=== PATIENT | female | born 1935 | race African-American/Black ===

== ENCOUNTER 2016-12-04 11:40 | Inpatient (IN) | payer OTHER, MEDICAID ==
[~2016-12-04] VITALS: Ht 167.6 cm; Wt 39.5 kg
[~2016-12-04 11:40] MED LIST: DOCU-138 PO; DONE5TAB26 PO; MELO-58 PO; PHEN100C4 PO; POTA20LI PO; PROT40 PO; SPIR25TA PO
[2016-12-04] MEDS ORDERED: TRAM50TA3 PO (13:09)
[2016-12-04] MEDS ORDERED: PROM6.25 PO (13:09)
[2016-12-04] MEDS ORDERED: SODIUM CHLORIDE 0.9% 1,000 ML IV ONE (16:45)
[2016-12-04] MEDS ORDERED: CEFTRIAXONE 1 G PREMIX 50 ML IV ONE (16:45)
[2016-12-04 17:01] LABS: HEMATOCRIT. 29.1 % (36.0-48.0); HEMOGLOBIN. 9.4 g/dL (12.0-16.0); MEAN CORPUSCULAR HEMOGLOBIN 26.5 pg (28.0-32.0); MEAN CORPUSCULAR HGB CONC 32.3 g/dL (31.0-37.0); MEAN PLATELET VOLUME 7.9 fl (7.4-10.4); PLATELET 321 x1000/uL (130-400); RED BLOOD CELL COUNT 3.56 mill/uL (4.2-5.4); RED CELL DISTRIBUTION WIDTH 15.8 % (11.6-14.6); WHITE BLOOD COUNT 12.3 x1000/uL (4.5-11.0)
[2016-12-04 17:07] LABS: CHLORIDE 101 mEq/L (98-107); DIFFERENTIAL COMMENT 1; INDEX HEMOLYSI 3 (1-3); INDEX ICTERIC 1 (1-4); INDEX LIPEMIC 1 (1-3)
[2016-12-04 17:08] LABS: INR 1.1
[2016-12-04 17:12] LABS: ANION GAP 12; CALCIUM 8.6 mg/dL (8.5-10.1); CARBON DIOXIDE 32 mEq/L (21-32); UREA NITROGEN BLOOD 8 mg/dL (7-21); eGFR > 60 mL/min (>60)
[2016-12-04 17:50] LABS: PLATELET ESTIMATE NORMAL
[2016-12-04 17:51] LABS: ANISOCYTOSIS 1+; HYPOCHROMASIA 1+
[2016-12-04] MEDS: LORAZEPAM 2MG/ML CPJ IV PRN ×2 (17:51→20:13)
[2016-12-04 21:45] VITALS: BP 126/73
[2016-12-04 22:00] VITALS: BP 126/77
[2016-12-04] MEDS ORDERED: SODIUM CHLORIDE 0.9% 1,000 ML IV SCH (23:45)
[2016-12-05] VITALS: BP 132/78
[2016-12-05] MEDS: SODIUM CHLORIDE 0.9% 1,000 ML IV SCH ×2 (01:49→13:25)
[2016-12-05 04:00] VITALS: BP 128/80
[2016-12-05] MEDS: CEFTRIAXONE 1 G PREMIX 50 ML IV SCH (04:08)
[2016-12-05 06:27] LABS: BASOPHILS % 0.3 % (0.0-2.0); EOSINOPHILS % 0.2 % (0.0-5.0); HEMATOCRIT. 27.5 % (36.0-48.0); HEMOGLOBIN. 9.2 g/dL (12.0-16.0); MEAN CORPUSCULAR HEMOGLOBIN 27.6 pg (28.0-32.0); MEAN CORPUSCULAR HGB CONC 33.3 g/dL (31.0-37.0); MEAN CORPUSCULAR VOLUME 82.7 fL (81.0-99.0); MEAN PLATELET VOLUME 7.2 fl (7.4-10.4); MONOCYTES % 6.8 % (2.0-8.0); NEUTROPHILS % 70.7 % (40.0-76.0); PLATELET 351 x1000/uL (130-400); RED BLOOD CELL COUNT 3.32 mill/uL (4.2-5.4); RED CELL DISTRIBUTION WIDTH 15.8 % (11.6-14.6); WHITE BLOOD COUNT 8.1 x1000/uL (4.5-11.0)
[2016-12-05 06:44] LABS: ANION GAP 14; CARBON DIOXIDE 28 mEq/L (21-32); CHLORIDE 100 mEq/L (98-107); INDEX HEMOLYSI 1 (1-3); INDEX ICTERIC 1 (1-4); INDEX LIPEMIC 1 (1-3); UREA NITROGEN BLOOD 5 mg/dL (7-21); eGFR > 60 mL/min (>60)
[2016-12-05 08:00] VITALS: BP 120/70
[2016-12-05] MEDS: ENOXAPARIN 30MG/0.3ML SYR SUBCUT SCH (09:12)
[2016-12-05] MEDS: HYDROCODONE/ACETAMINOPHEN 5/325MG TABLET PO PRN ×2 (09:28→20:48)
[2016-12-05 12:00] VITALS: BP 97/71
[2016-12-05] MEDS ORDERED: LIDOCAINE HCL 1% 20ML VIAL (Pyxis) INJ INFIL NR (12:15)
[2016-12-05] MEDS ORDERED: GABA-529 PO (12:19)
[2016-12-05 16:00] VITALS: BP 117/68
[2016-12-05 20:00] VITALS: BP 154/91
[2016-12-06] VITALS: BP 132/76
[2016-12-06] MEDS: LORAZEPAM 2MG/ML CPJ IV PRN ×2 (00:18→15:04)
[2016-12-06 04:00] VITALS: BP 129/92
[2016-12-06] MEDS: SODIUM CHLORIDE 0.9% 1,000 ML IV SCH ×2 (04:34→17:46)
[2016-12-06] MEDS: CEFTRIAXONE 1 G PREMIX 50 ML IV SCH (04:35)
[2016-12-06 08:00] VITALS: BP 123/81
[2016-12-06] MEDS: ENOXAPARIN 30MG/0.3ML SYR SUBCUT SCH (09:11)
[2016-12-06] MEDS ORDERED: VANCOMYCIN 1 G PREMIX 200 ML IV SCH (11:00)
[2016-12-06] MEDS: HYDROCODONE/ACETAMINOPHEN 5/325MG TABLET PO PRN ×2 (11:55→17:46)
[2016-12-06 12:00] VITALS: BP 140/75
[2016-12-06 16:00] VITALS: BP 103/78
[2016-12-06 20:00] VITALS: BP 142/76
[2016-12-07] VITALS: BP 120/82
[2016-12-07 04:00] VITALS: BP 150/98
[2016-12-07] MEDS: CEFTRIAXONE 1 G PREMIX 50 ML IV SCH (05:17)
[2016-12-07] MEDS: HYDROCODONE/ACETAMINOPHEN 5/325MG TABLET PO PRN ×3 (05:27→23:24)
[2016-12-07] MEDS: SODIUM CHLORIDE 0.9% 1,000 ML IV SCH ×2 (05:28→22:50)
[2016-12-07 06:56] LABS: BASOPHILS % 0.3 % (0.0-2.0); EOSINOPHILS % 0.1 % (0.0-5.0); HEMATOCRIT. 28.8 % (36.0-48.0); HEMOGLOBIN. 9.6 g/dL (12.0-16.0); LYMPHOCYTES % 17.9 % (20.0-50.0); MEAN CORPUSCULAR HEMOGLOBIN 26.9 pg (28.0-32.0); MEAN CORPUSCULAR HGB CONC 33.2 g/dL (31.0-37.0); MEAN PLATELET VOLUME 7.3 fl (7.4-10.4); MONOCYTES % 8.1 % (2.0-8.0); NEUTROPHILS % 73.6 % (40.0-76.0); PLATELET 413 x1000/uL (130-400); RED BLOOD CELL COUNT 3.56 mill/uL (4.2-5.4); RED CELL DISTRIBUTION WIDTH 15.7 % (11.6-14.6); WHITE BLOOD COUNT 7.7 x1000/uL (4.5-11.0)
[2016-12-07 07:50] LABS: CHLORIDE 101 mEq/L (98-107); INDEX HEMOLYSI 1 (1-3); INDEX ICTERIC 1 (1-4); INDEX LIPEMIC 1 (1-3)
[2016-12-07 08:00] VITALS: BP 134/80
[2016-12-07 08:04] LABS: ANION GAP 15; CARBON DIOXIDE 27 mEq/L (21-32); eGFR > 60 mL/min (>60)
[2016-12-07 08:26] LABS: UREA NITROGEN BLOOD 4 mg/dL (7-21)
[2016-12-07] MEDS: OMEPRAZOLE 20MG CAPSULE EXTENDED RELEASE PO SCH (10:20)
[2016-12-07] MEDS: ENOXAPARIN 30MG/0.3ML SYR SUBCUT SCH (10:20)
[2016-12-07] MEDS ORDERED: VANCOMYCIN 750 MG PREMIX 150 ML IV SCH (11:00)
[2016-12-07 12:00] VITALS: BP 146/89
[2016-12-07] MEDS ORDERED: POTASSIUM CHLORIDE INJ 40 MEQ in DEXT 5% WATER 500 ML IV NR (12:30)
[2016-12-07 16:00] VITALS: BP 131/88
[2016-12-07 20:00] VITALS: BP 113/79
[2016-12-08] VITALS: BP 108/66
[2016-12-08] MEDS: CEFTRIAXONE 1 G PREMIX 50 ML IV SCH (03:55)
[2016-12-08 04:00] VITALS: BP 129/86
[2016-12-08] MEDS: OMEPRAZOLE 20MG CAPSULE EXTENDED RELEASE PO SCH ×2 (07:20→08:40)
[2016-12-08 08:00] VITALS: BP 111/60
[2016-12-08] MEDS: VANCOMYCIN 750 MG PREMIX 150 ML IV SCH (08:36)
[2016-12-08] MEDS: ENOXAPARIN 30MG/0.3ML SYR SUBCUT SCH (08:38)
[2016-12-08] MEDS: SODIUM CHLORIDE 0.9% 1,000 ML IV SCH (08:47)
[2016-12-08 09:30] LABS: BASOPHILS % 0.9 % (0.0-2.0); EOSINOPHILS % 0.1 % (0.0-5.0); HEMATOCRIT. 26.2 % (36.0-48.0); HEMOGLOBIN. 8.6 g/dL (12.0-16.0); LYMPHOCYTES % 15.9 % (20.0-50.0); MEAN CORPUSCULAR HEMOGLOBIN 26.5 pg (28.0-32.0); MEAN CORPUSCULAR HGB CONC 32.9 g/dL (31.0-37.0); MEAN CORPUSCULAR VOLUME 80.5 fL (81.0-99.0); MEAN PLATELET VOLUME 7.1 fl (7.4-10.4); MONOCYTES % 7.3 % (2.0-8.0); NEUTROPHILS % 75.8 % (40.0-76.0); PLATELET 400 x1000/uL (130-400); RED BLOOD CELL COUNT 3.25 mill/uL (4.2-5.4); RED CELL DISTRIBUTION WIDTH 15.8 % (11.6-14.6); WHITE BLOOD COUNT 7.5 x1000/uL (4.5-11.0)
[2016-12-08 09:50] LABS: ANION GAP 11; CALCIUM 7.5 mg/dL (8.5-10.1); CARBON DIOXIDE 27 mEq/L (21-32); CHLORIDE 104 mEq/L (98-107); INDEX HEMOLYSI 1 (1-3); INDEX ICTERIC 1 (1-4); INDEX LIPEMIC 1 (1-3); UREA NITROGEN BLOOD 5 mg/dL (7-21); eGFR > 60 mL/min (>60)
[2016-12-08] MEDS ORDERED: POTASSIUM CHLORIDE 20MEQ TABLET SR PO NR (10:10)
[2016-12-08 12:00] VITALS: BP 145/85
[2016-12-08] MEDS ORDERED: POTASSIUM CHLORIDE INJ 40 MEQ in DEXT 5% WATER 250 ML IV NR (12:00)
[2016-12-08 16:00] VITALS: BP 152/104
[2016-12-08] MEDS: HYDROCODONE/ACETAMINOPHEN 5/325MG TABLET PO PRN (16:57)
[2016-12-08 20:00] VITALS: BP 105/63
[2016-12-08] MEDS: LORAZEPAM 2MG/ML CPJ IV PRN (21:42)
[2016-12-08] MEDS ORDERED: CALCIUM CHLORIDE IV NR (23:00)
[2016-12-08] MEDS ORDERED: WATER IV NR (23:00)
[2016-12-08] MEDS ORDERED: DEXT 5% IV NR (23:00)
[2016-12-09] VITALS: BP 105/71
[2016-12-09] MEDS: VANCOMYCIN 750 MG PREMIX 150 ML IV SCH ×2 (02:42→20:56)
[2016-12-09] MEDS: CEFTRIAXONE 1 G PREMIX 50 ML IV SCH (03:59)
[2016-12-09 04:00] VITALS: BP 118/67
[2016-12-09] MEDS: OMEPRAZOLE 20MG CAPSULE EXTENDED RELEASE PO SCH (07:00)
[2016-12-09 08:00] VITALS: BP 128/77
[2016-12-09] MEDS: ENOXAPARIN 30MG/0.3ML SYR SUBCUT SCH (10:14)
[2016-12-09 12:00] VITALS: BP 137/82
[2016-12-09 15:09] LABS: BASOPHILS % 0.6 % (0.0-2.0); EOSINOPHILS % 0.1 % (0.0-5.0); HEMATOCRIT. 28.1 % (36.0-48.0); HEMOGLOBIN. 9.3 g/dL (12.0-16.0); LYMPHOCYTES % 22.7 % (20.0-50.0); MEAN CORPUSCULAR HEMOGLOBIN 26.9 pg (28.0-32.0); MEAN CORPUSCULAR HGB CONC 33.1 g/dL (31.0-37.0); MEAN CORPUSCULAR VOLUME 81.3 fL (81.0-99.0); MEAN PLATELET VOLUME 7.2 fl (7.4-10.4); MONOCYTES % 7.9 % (2.0-8.0); NEUTROPHILS % 68.7 % (40.0-76.0); PLATELET 391 x1000/uL (130-400); RED BLOOD CELL COUNT 3.45 mill/uL (4.2-5.4); RED CELL DISTRIBUTION WIDTH 15.8 % (11.6-14.6); WHITE BLOOD COUNT 6.7 x1000/uL (4.5-11.0)
[2016-12-09 15:19] LABS: ANION GAP 10; CALCIUM 8.8 mg/dL (8.5-10.1); CARBON DIOXIDE 29 mEq/L (21-32); CHLORIDE 102 mEq/L (98-107); INDEX HEMOLYSI 1 (1-3); INDEX ICTERIC 1 (1-4); INDEX LIPEMIC 1 (1-3)
[2016-12-09 15:21] LABS: UREA NITROGEN BLOOD 4 mg/dL (7-21)
[2016-12-09 15:22] LABS: eGFR > 60 mL/min (>60)
[2016-12-09 16:00] VITALS: BP 116/81
[2016-12-09 20:00] VITALS: BP 126/64
[2016-12-09] MEDS: HYDROCODONE/ACETAMINOPHEN 5/325MG TABLET PO PRN (20:56)
[2016-12-09] MEDS ORDERED: POTASSIUM CHLORIDE INJ 40 MEQ in DEXT 5% WATER 250 ML IV NR (23:00)
[2016-12-10] VITALS: BP 121/91
[2016-12-10 04:00] VITALS: BP 139/92
[2016-12-10] MEDS: CEFTRIAXONE 1 G PREMIX 50 ML IV SCH (06:18)
[2016-12-10] MEDS ORDERED: FAMOTIDINE 20MG TABLET PO SCH (07:20)
[2016-12-10 08:00] VITALS: BP 131/81
[2016-12-10 08:09] LABS: ANION GAP 12; CARBON DIOXIDE 27 mEq/L (21-32); CHLORIDE 102 mEq/L (98-107); INDEX HEMOLYSI 1 (1-3); INDEX ICTERIC 1 (1-4); INDEX LIPEMIC 1 (1-3); UREA NITROGEN BLOOD 5 mg/dL (7-21); eGFR > 60 mL/min (>60)
[2016-12-10] MEDS ORDERED: POTASSIUM CHLORIDE 20MEQ TABLET SR PO NR (08:30)
[2016-12-10] MEDS: VANCOMYCIN 750 MG PREMIX 150 ML IV SCH (09:46)
[2016-12-10] MEDS: ENOXAPARIN 30MG/0.3ML SYR SUBCUT SCH (09:47)
[2016-12-10] MEDS ORDERED: POTASSIUM CHLORIDE INJ 40 MEQ in DEXT 5% WATER 250 ML IV ONE (10:30)
[2016-12-10 12:00] VITALS: BP 141/87
[2016-12-10 16:00] VITALS: BP 138/82
[2016-12-10 16:01] VITALS: BP 141/87
[2016-12-10] MEDS ORDERED: AMOXICILLIN/POTASSIUM CLAVULANATE 875/125MG TAB PO SCH (21:00)
[2016-12-10] MEDS ORDERED: SULFAMETHOXAZOLE/TRIMETHOPRIM 400/80MG TAB PO SCH (21:00)
== END 2016-12-10 17:35 | disposition home health service (06) | DRG 853 ==
LOC: ER 11:40 → 6EST 16:11
PROVIDERS: ADMIT Internal Medicine; ATTEND Internal Medicine
PROC: 0KBP0ZZ Excision of Left Hip Muscle, Open Approach (ICD-10-PCS; principal; 2016-12-07)
PROC: 0KBN0ZZ Excision of Right Hip Muscle, Open Approach (ICD-10-PCS; 2016-12-07)
DX: A41.9 Sepsis, unspecified organism (principal); G93.49 Other encephalopathy; L89.224 Pressure ulcer of left hip, stage 4; L89.214 Pressure ulcer of right hip, stage 4; L03.90 Cellulitis, unspecified; Z68.1 Body mass index [BMI] 19.9 or less, adult; E44.1 Mild protein-calorie malnutrition; L08.9 Local infection of the skin and subcutaneous tissue, unspecified; D64.9 Anemia, unspecified; L89.159 Pressure ulcer of sacral region, unspecified stage; L89.219 Pressure ulcer of right hip, unspecified stage; I25.10 Atherosclerotic heart disease of native coronary artery without angina pectoris; I10 Essential (primary) hypertension; F03.90 Unspecified dementia, unspecified severity, without behavioral disturbance, psychotic disturbance, mood disturbance, and anxiety; Z74.01 Bed confinement status; Z86.73 Personal history of transient ischemic attack (TIA), and cerebral infarction without residual deficits; Z98.61 Coronary angioplasty status; Z98.890 Other specified postprocedural states
CPT/HCPCS: 36415; 80048; 80202; 85025; 85610; 96374; 96375; 99285; J0696; J1650; J2060; J3370; J3480; J3490; J7030; J7050; J7060

== ENCOUNTER 2017-01-16 05:23 | Inpatient (IN) | payer OTHER ==
[~2017-01-16] VITALS: Ht 162.6 cm; Wt 51.7 kg
[~2017-01-16 05:23] MED LIST changes: -DOCU-138 PO; -DONE5TAB26 PO; +GABA-529 PO; -MELO-58 PO; -PHEN100C4 PO; -POTA20LI PO; +PROM6.25 PO; -PROT40 PO; -SPIR25TA PO; +TRAM50TA3 PO
[2017-01-16 06:28] LABS: HEMATOCRIT. 32.5 % (36.0-48.0); HEMOGLOBIN. 10.8 g/dL (12.0-16.0); MEAN CORPUSCULAR HGB CONC 33.2 g/dL (31.0-37.0); MEAN CORPUSCULAR VOLUME 78.5 fL (81.0-99.0); MEAN PLATELET VOLUME 6.6 fl (7.4-10.4); PLATELET 358 x1000/uL (130-400); RED BLOOD CELL COUNT 4.14 mill/uL (4.2-5.4); RED CELL DISTRIBUTION WIDTH 17.5 % (11.6-14.6); WHITE BLOOD COUNT 6.5 x1000/uL (4.5-11.0)
[2017-01-16 06:29] LABS: DIFFERENTIAL COMMENT 1
[2017-01-16 06:42] LABS: ALANINE AMINOTRANSFERASE 12 IU/L (13-61); ALBUMIN 2.5 g/dL (3.4-5.0); ANION GAP 13; CALCIUM 8.5 mg/dL (8.5-10.1); CARBON DIOXIDE 32 mEq/L (21-32); CHLORIDE 95 mEq/L (98-107); INDEX HEMOLYSI 1 (1-3); INDEX ICTERIC 1 (1-4); INDEX LIPEMIC 1 (1-3); UREA NITROGEN BLOOD 6 mg/dL (7-21); eGFR > 60 mL/min (>60)
[2017-01-16 06:48] LABS: CLARITY URINE CLEAR (CLEAR); COLOR URINE YELLOW (YELLOW); GLUCOSE URINE NEGATIVE (NEGATIVE); KETONES URINE NEGATIVE (NEGATIVE); LEUKOCYTE ESTERASE URINE NEGATIVE (NEGATIVE); NITRITE URINE NEGATIVE (NEGATIVE); OCCULT BLOOD URINE NEGATIVE (NEGATIVE); PH URINE 8.5 (4.5-8.0); PROTEIN URINE NEGATIVE (NEGATIVE); SPECIFIC GRAVITY URINE 1.008 (1.005-1.030); UROBILINOGEN URINE 0.2 E.U./dL (0.2-1.0)
[2017-01-16] MEDS ORDERED: ONDANSETRON HCL 4MG/2ML VIAL IV ONE (07:15)
[2017-01-16] MEDS ORDERED: MORPHINE SULFATE 2 MG/ML CPJ (NOT FOR IM USE) IV ONE (07:15)
[2017-01-16] MEDS ORDERED: POTASSIUM CHLORIDE 20MEQ TABLET SR PO ONE (08:00)
[2017-01-16] MEDS ORDERED: POTASSIUM CHLORIDE INJ 40 MEQ in DEXT 5% WATER 250 ML IV ONE (08:30)
[2017-01-16] MEDS ORDERED: LEVETIRACETAM 1,000 MG in SODIUM CHLORIDE 0.9% 100 ML IV ONE (08:30)
[2017-01-16 08:56] LABS: ANISOCYTOSIS 1+; PLATELET ESTIMATE NORMAL
[2017-01-16] MEDS ORDERED: CLONIDINE 0.1MG TABLET PO PRN (10:15)
[2017-01-16] MEDS ORDERED: DIPHENHYDRAMINE 50MG/ML VIAL IV PRN (10:15)
[2017-01-16] MEDS ORDERED: ONDANSETRON HCL 4MG/2ML VIAL IV PRN (10:15)
[2017-01-16] MEDS ORDERED: HYDROCODONE/ACETAMINOPHEN 5/325MG TABLET PO PRN (10:15)
[2017-01-16] MEDS ORDERED: ACETAMINOPHEN 325MG TABLET PO PRN (10:15)
[2017-01-16] MEDS ORDERED: IPRATROPIUM/ALBUTEROL 0.5-3(2.5)MG/3ML NEB INH PRN (13:30)
[2017-01-16] MEDS ORDERED: MORPHINE SULFATE 2 MG/ML CPJ (NOT FOR IM USE) IV PRN (15:15)
[2017-01-16 20:33] VITALS: BP 121/88
[2017-01-16 22:10] VITALS: BP 121/88
[2017-01-16] MEDS: LEVETIRACETAM 500 MG in SODIUM CHLORIDE 0.9% 100 ML IV SCH (23:00)
[2017-01-17] VITALS: BP 119/68
[2017-01-17] MEDS ORDERED: OMEP20CA10 PO (01:17)
[2017-01-17] MEDS ORDERED: DONE5TAB33 PO (01:17)
[2017-01-17] MEDS ORDERED: SPIR25TA4 PO (01:17)
[2017-01-17 04:00] VITALS: BP 116/72
[2017-01-17 06:44] LABS: BASOPHILS % 0.5 % (0.0-2.0); DIFFERENTIAL COMMENT 0; EOSINOPHILS % 0.2 % (0.0-5.0); HEMATOCRIT. 35.2 % (36.0-48.0); HEMOGLOBIN. 11.4 g/dL (12.0-16.0); LYMPHOCYTES % 21.1 % (20.0-50.0); MEAN CORPUSCULAR HEMOGLOBIN 25.8 pg (28.0-32.0); MEAN CORPUSCULAR HGB CONC 32.4 g/dL (31.0-37.0); MEAN CORPUSCULAR VOLUME 79.5 fL (81.0-99.0); MEAN PLATELET VOLUME 7.1 fl (7.4-10.4); MONOCYTES % 6.1 % (2.0-8.0); NEUTROPHILS % 72.1 % (40.0-76.0); PLATELET 340 x1000/uL (130-400); RED BLOOD CELL COUNT 4.43 mill/uL (4.2-5.4); RED CELL DISTRIBUTION WIDTH 17.3 % (11.6-14.6); WHITE BLOOD COUNT 6.2 x1000/uL (4.5-11.0)
[2017-01-17 07:12] LABS: CHLORIDE 98 mEq/L (98-107); INDEX HEMOLYSI 2 (1-3); INDEX ICTERIC 1 (1-4); INDEX LIPEMIC 1 (1-3)
[2017-01-17 07:46] LABS: ALANINE AMINOTRANSFERASE 15 IU/L (13-61); ALBUMIN 2.4 g/dL (3.4-5.0); ANION GAP 17; CALCIUM 8.4 mg/dL (8.5-10.1); CARBON DIOXIDE 27 mEq/L (21-32); HDL CHOLESTEROL 72 mg/dL (40-59); LDL CHOLESTEROL 121 mg/dL (5-100); TRIGLYCERIDE 58 mg/dL (0-150); UREA NITROGEN BLOOD 5 mg/dL (7-21); eGFR > 60 mL/min (>60)
[2017-01-17 08:00] VITALS: BP 131/82
[2017-01-17] MEDS: LEVETIRACETAM 500 MG in SODIUM CHLORIDE 0.9% 100 ML IV SCH ×2 (10:20→22:11)
[2017-01-17 10:40] LABS: CREATINE KINASE MB FRACTION 4.2 ng/mL (0.5-3.6); TROPONIN I 0.05 ng/mL (0.00-0.04)
[2017-01-17 12:00] VITALS: BP 130/72
[2017-01-17 16:00] VITALS: BP 100/52
[2017-01-17 20:00] VITALS: BP 113/66
[2017-01-17] MEDS ORDERED: ATORVASTATIN CALCIUM 10MG TABLET PO SCH (21:00)
[2017-01-18] VITALS: BP 124/72
[2017-01-18 04:00] VITALS: BP 114/69
[2017-01-18 06:18] LABS: BASOPHILS % 0.2 % (0.0-2.0); DIFFERENTIAL COMMENT 0; EOSINOPHILS % 0.1 % (0.0-5.0); HEMATOCRIT. 32.2 % (36.0-48.0); HEMOGLOBIN. 10.4 g/dL (12.0-16.0); LYMPHOCYTES % 28.2 % (20.0-50.0); MEAN CORPUSCULAR HEMOGLOBIN 25.7 pg (28.0-32.0); MEAN CORPUSCULAR HGB CONC 32.5 g/dL (31.0-37.0); MEAN CORPUSCULAR VOLUME 79.2 fL (81.0-99.0); MEAN PLATELET VOLUME 7.9 fl (7.4-10.4); MONOCYTES % 6.9 % (2.0-8.0); NEUTROPHILS % 64.6 % (40.0-76.0); PLATELET 314 x1000/uL (130-400); RED BLOOD CELL COUNT 4.07 mill/uL (4.2-5.4)
[2017-01-18 06:39] LABS: CHLORIDE 99 mEq/L (98-107); INDEX HEMOLYSI 1 (1-3); INDEX ICTERIC 1 (1-4); INDEX LIPEMIC 1 (1-3)
[2017-01-18 06:48] LABS: ANION GAP 18; CALCIUM 8.5 mg/dL (8.5-10.1); CARBON DIOXIDE 25 mEq/L (21-32); UREA NITROGEN BLOOD 7 mg/dL (7-21); eGFR > 60 mL/min (>60)
[2017-01-18 08:00] VITALS: BP 105/73
[2017-01-18] MEDS: LEVETIRACETAM 500 MG in SODIUM CHLORIDE 0.9% 100 ML IV SCH (09:44)
[2017-01-18 12:00] VITALS: BP 123/75
[2017-01-18 16:00] VITALS: BP 110/63
[2017-01-18 16:38] VITALS: BP 110/63
== END 2017-01-18 19:30 | disposition hospice, home (50) | DRG 100 ==
LOC: ER 05:30 → 7WST 16:36
PROVIDERS: ADMIT Internal Medicine; ATTEND Internal Medicine
DX: R56.9 Unspecified convulsions (principal); E43 Unspecified severe protein-calorie malnutrition; Z68.1 Body mass index [BMI] 19.9 or less, adult; D64.9 Anemia, unspecified; E87.6 Hypokalemia; Z51.5 Encounter for palliative care; E78.00 Pure hypercholesterolemia, unspecified; E78.5 Hyperlipidemia, unspecified; F03.90 Unspecified dementia, unspecified severity, without behavioral disturbance, psychotic disturbance, mood disturbance, and anxiety; L89.229 Pressure ulcer of left hip, unspecified stage; L89.219 Pressure ulcer of right hip, unspecified stage; I10 Essential (primary) hypertension; I25.10 Atherosclerotic heart disease of native coronary artery without angina pectoris; K59.00 Constipation, unspecified; Z79.899 Other long term (current) drug therapy; Z95.5 Presence of coronary angioplasty implant and graft; Z90.49 Acquired absence of other specified parts of digestive tract; L89.90 Pressure ulcer of unspecified site, unspecified stage
CPT/HCPCS: 36415; 70450; 71010; 80048; 80053; 80061; 81003; 82550; 82553; 84484; 85025; 93005; 96365; 96366; 96367; 96375; 99291; J1953; J2270; J2405; J3480; J7040; J7050; J7060